=== PATIENT | female | born 1980 | race Caucasian/White ===

== ENCOUNTER 2019-08-14 14:07 | Emergency (ER) | payer MEDICARE, MEDICAID, SELFPAY ==
[2019-08-14 14:15] VITALS: BP 159/103; PULSE 120; RESP 17; TEMP 36.4; O2SAT 96; BMI 33.4
[2019-08-14 15:12] LABS: Basophils # 0.1 10^3/uL (0.0-0.1); Basophils % 0.7 %; Eosinophils # 0.2 10^3/uL (0.0-0.8); Eosinophils % 1.5 %; Hematocrit 41.2 % (37.0-47.0); Hemoglobin 13.1 g/dL (11.5-15.3); Lymphocytes # 3.6 10^3/uL (0.8-4.8); Lymphocytes % 29.1 %; Mean Corpuscular HGB Conc 31.8 g/dL (30.0-36.0); Mean Corpuscular Hemoglobin 27.9 pg (28.0-34.0); Mean Corpuscular Volume 87.7 fL (81-99); Mean Platelet Volume 9.6 fL (7.4-10.4); Monocytes # 0.8 10^3/uL (0.2-0.9); Neutrophils # 7.8 10^3/uL (1.8-7.7); Neutrophils % 62.5 %; Nucleated Red Blood Cells % 0 %; Platelet Count 474 10^3/cmm (130-400); Red Cell Distribution Width 15.7 % (12.1-15.1); White Blood Count 12.5 10^3/uL (4.0-10.0)
[2019-08-14 15:24] LABS: Add Urine Microscopic? NO
[2019-08-14 15:30] LABS: Alanine Aminotransferase 36 U/L (0-33); Albumin Level 4.5 g/dL (3.5-5.2); Alkaline Phosphatase 132 IU/L (35-105); Anion Gap 16.8 (5-19); Aspartate Amino Transferase 20 U/L (0-32); Blood Urea Nitrogen 13 mg/dL (6-20); Calcium 10.4 mg/Dl (8.6-10.0); Carbon Dioxide 22 mmol/L (22-29); Chloride 102 mmol/L (98-107); Globulin 3.8 g/dL (1.3-4.6); Glomerular Filtration Rate 92.7 mL/min (90-130); Glucose 152 mg/dL (74-109); Lipase 13 U/L (13-60); Potassium 3.8 mmol/L (3.5-5.1); Sodium 137 mmol/L (136-145); Total Bilirubin 0.2 mg/dL (0.15-1.2); Total Protein 8.3 g/dL (6.6-8.7)
[2019-08-14 15:31] LABS: Bilirubin Urine Neg (NEGATIVE); Blood Urine Neg (Negative); Glucose Urine UA Norm (Normal); Ketones Urine Negative (Negative); Leukocyte Esterase Urine Negative (Negative); Nitrate Urine Negative (Negative); Protein Urine Neg (Negative); Specific Gravity, Urine 1.005 (1.005-1.030); Urine Appearance Clear (CLEAR); Urine Color Straw (Yellow); Urobilinogen Urine Norm (Negative)
[2019-08-15 07:24] LABS: HCG, Serum Qual Negative (Negative)
== END 2019-08-14 16:39 | disposition left against medical advice (07) ==
LOC: ER 16:40
PROVIDERS: Emergency Provider Physician Assistant; Family Provider Family Medicine; PCP Family Medicine
DX: Z53.21 Procedure and treatment not carried out due to patient leaving prior to being seen by health care provider (principal)
CPT/HCPCS: 36415; 80053; 81003; 83690; 84703; 85025; 99281

== ENCOUNTER → 2019-11-15 16:44 | Outpatient (BNVA) | payer MEDICARE, MEDICAID, SELFPAY | PROVIDERS: Family Provider Family Medicine; PCP Family Medicine; Visit Provider Nurse Practitioner Family | DX: R05 Cough (principal); J01.40 Acute pansinusitis, unspecified; F17.210 Nicotine dependence, cigarettes, uncomplicated; Z71.89 Other specified counseling | CPT/HCPCS: 87400 ==

== ENCOUNTER → 2020-04-21 16:26 | Outpatient (BNVA) | payer MEDICARE, MEDICAID, SELFPAY | PROVIDERS: Family Provider Family Medicine; PCP Family Medicine; Visit Provider Family Medicine | DX: R05 Cough (principal) | CPT/HCPCS: 87635 ==

== ENCOUNTER 2020-05-18 06:57 | Outpatient (CLI) | payer MEDICARE, MEDICAID, SELFPAY ==
--- NOTE | 2020-05-18 | US_ITS ---
WS: [id number] RIGHT UPPER QUADRANT ULTRASOUND HISTORY: RUQ, TRANSAMINASES, SERUM ELEVATED COMPARISON: 01/27/2015 Liver: 17.1 cm in length. Mildly enlarged liver with mild hepatic steatosis. No mass or bile duct dil atation. Gallbladder: Prior cholecystectomy. CBD: 0.7 cm Pancreas: Normal size and echogenicity. Right kidney: 10.9 cm in length. Normal size and echogenicity. No hydronephrosis or mass. Aorta and IVC: Unremarkable abdominal aorta and IVC. No ascites. US/US gall bladder [id number] IMPRESSION: 1. Prior cholecystectomy. 2. Mild hepatic steatosis and hepatomegaly.
== END 2020-05-18 06:58 | disposition home or self-care (01) ==
LOC: US 07:00
PROVIDERS: Family Provider Family Medicine; PCP Family Medicine; Visit Provider Family Medicine
DX: R74.01 Elevation of levels of liver transaminase levels (principal); K76.0 Fatty (change of) liver, not elsewhere classified; R16.0 Hepatomegaly, not elsewhere classified
CPT/HCPCS: 76705

== ENCOUNTER 2020-06-03 10:37 | Outpatient (CLI) | payer MEDICARE, MEDICAID, SELFPAY ==
--- NOTE | 2020-06-03 10:46 | XR_ITS ---
WS: [id number] [facility], 06/03/2020 Clinical Data: ABD PAIN/DIARRHEA Comparison: KUB, 08/11/2013. Findings: No abnormal intraabdominal masses or calcifications are seen. There is no dilatated small bowel or ev idence of obstruction. There is a large amount of fecal material through out the colon. There are clips in the right upper q uadrant from a cholecystectomy. XR/XR abdomen 1V* [id number] Impression: Large amount of fecal material throughout the colon.
== END 2020-06-03 10:38 | disposition home or self-care (01) ==
PROVIDERS: PCP Family Medicine; Visit Provider Electrodiagnostic Medicine
DX: R10.9 Unspecified abdominal pain (principal); E07.9 Disorder of thyroid, unspecified; E11.9 Type 2 diabetes mellitus without complications; R19.7 Diarrhea, unspecified
CPT/HCPCS: 74018

== ENCOUNTER 2020-07-01 12:57 | Outpatient (CLI) | payer MEDICARE, MEDICAID, SELFPAY ==
--- NOTE | 2020-07-01 13:00 | CT_ITS ---
WS: [id number] CT ABDOMEN PELVIS TECHNIQUE: Contrast-enhanced CT of the abdomen and pelvis with coronal and sagittal reformatted image s. CLINICAL INFORMATION: ABDOMINAL PAIN, LEFT LOWER QUADRANT COMPARISON: None. DLP: 1185.[address] scans at [facility] use at least one of these dose optimization techniques: automat ed exposure control; mA and/or kV adjustment per patient size (includes targeted exams where dose is matched to clinical indication); or iterative reconstruction. FINDINGS: Mild hepatomegaly. Mild diffuse fatty infiltration liver. Prior cholecystectomy. Liver measures 17 cm in craniocaudal dimension. Lung bases are well aerated. Mild fatty atrophy of the pancreas. Adrenal glands are normal. Normal sp donte. Normal GE junction. Normal caliber abdominal aorta. No periaortic lymphadenopathy. No hydroneph rosis in either kidney. Normal renal parenchymal enhancement. Normal sigmoid colon. No evidence of high-grade small or large bowel obstruction. Normal appendix In the right lower quadrant. Fat-containing umbilical hernia. No pelvic or inguinal lymphadenopathy. 1.7 x 2.8 cm left ovarian cyst. No free fluid in the pelvis. CT/CT abdomen pelvis w con* [id number] IMPRESSION: 1. Mild hepatomegaly with diffuse fatty infiltration. 2. Prior cholecystectomy. 3. No hydronephrosis in either kidney. 4. Incidental fat-containing umbilical hernia. 5. Left ovarian cyst measuring 1.7 x 2.68 cm. This can be followed up with ult rasound. 6. No other significant findings.
[2020-07-01] MEDS: iohexol 300 mg/mL 50 mL Btl PO (13:20)
[2020-07-01] MEDS: iohexol 300 mg/mL 100 mL Btl IV (14:32)
== END 2020-07-01 12:58 | disposition home or self-care (01) ==
LOC: RADWPI 13:02
PROVIDERS: PCP Family Medicine; Visit Provider Family Medicine
DX: R10.32 Left lower quadrant pain (principal); R16.0 Hepatomegaly, not elsewhere classified; K76.0 Fatty (change of) liver, not elsewhere classified; Z90.49 Acquired absence of other specified parts of digestive tract; K42.9 Umbilical hernia without obstruction or gangrene; N83.202 Unspecified ovarian cyst, left side
CPT/HCPCS: 74177; Q9967

== ENCOUNTER → 2020-08-03 16:20 | Outpatient (BNVA) | payer MEDICARE, MEDICAID, SELFPAY | PROVIDERS: PCP Family Medicine; Visit Provider Obstetrics & Gynecology | DX: E28.2 Polycystic ovarian syndrome (principal); E11.9 Type 2 diabetes mellitus without complications; L65.9 Nonscarring hair loss, unspecified; N64.4 Mastodynia | CPT/HCPCS: 82306; 84439; 84443 ==

== ENCOUNTER → 2020-08-13 10:56 | Outpatient (BNVA) | payer MEDICARE, MEDICAID, SELFPAY | PROVIDERS: PCP Family Medicine; Visit Provider Family Medicine | DX: Z20.822 Contact with and (suspected) exposure to COVID-19 (principal); Z11.52 Encounter for screening for COVID-19 | CPT/HCPCS: 87635 ==

== ENCOUNTER 2021-06-15 15:31 | Outpatient (CLI) | payer MEDICARE, MEDICAID, SELFPAY ==
--- NOTE | 2021-06-15 15:38 | XRR_ITS ---
PROCEDURE INFORMATION: Exam: XR Chest Exam date and time: 06/15/2021 3:38 PM Age: 40 years old Clinical indication: Patient HX: Low grade fever x 11 days. (98.5-11.9) PT states she just does not feel well. Tested neg. For covid TECHNIQUE: Imaging protocol: XR of the chest. Views: 2 views. COMPARISON: CR Chest 1 [place] [id number] 12/13/2015 7:02 PM FINDINGS: Lungs: Unremarkable. No consolidation. Pleural spaces: Unremarkable. No pleural effusion. No pneumothorax. Heart/Mediastinum: Unremarkable. No cardiomegaly. Bones/joints: Unremarkable. XR/XR chest 2V* [id number] IMPRESSION: No acute findings. Radiation Dose CTDIVOL = (mGy): DLP = (mGy-cm)
== END 2021-06-15 15:32 | disposition home or self-care (01) ==
LOC: RAD 15:36
PROVIDERS: PCP Family Medicine; Visit Provider Family Medicine
DX: R50.9 Fever, unspecified (principal)
CPT/HCPCS: 71046

== ENCOUNTER 2021-07-02 08:07 | Outpatient (CLI) | payer MEDICARE, MEDICAID, SELFPAY ==
--- NOTE | 2021-07-02 | CT_ITS ---
WS: [id number] Exam: CT neck w con* [id number] Date/Time of Exam: 07/02/2021 8:44 AM Reason For Exam: LEFT LYMPHADENOPATHY DLP: 1150.[address] scans at [facility] use at least one of these dose optimization techniques: automated e xposure control; mA and/or kV adjustment per patient size (includes targeted exams where dose is matc hed to clinical indication); or iterative reconstruction. No evidence of neck mass. There are small lymph nodes in the right and left neck. The largest nodes m easure in the range of 6 mm at greatest short axis dimension. These are probably reactive or inflamma tory nodes. The airway is patent. The submandibular glands and parotid glands are symmetrical side to side. No mass is seen in the region of the tongue base. Vascular structures are patent. Prominent th yroid lobes. No superior mediastinal lymphadenopathy. No axillary or subpectoral lymphadenopathy. The upper lung zones are clear. There is a retention cyst in the left sphenoid sinus. The mastoids and r emaining facial sinuses were clear. Limited images of the skull base were otherwise unremarkable. CT/CT neck w con* [id number] IMPRESSION: 1. No indication of neck mass. 2. There are small lymph nodes identified in the right and left neck. All measu re less than 1 cm greatest short axis dimension. These are likely reactive or i nflammatory nodes. 3. Retention cyst in the left sphenoid sinus.
[2021-07-02] MEDS: iohexol 300 mg/mL 100 mL Btl IV (11:09)
== END 2021-07-02 08:08 | disposition home or self-care (01) ==
PROVIDERS: PCP Family Medicine; Visit Provider Family Medicine
DX: R59.0 Localized enlarged lymph nodes (principal); J34.1 Cyst and mucocele of nose and nasal sinus
CPT/HCPCS: 70491; Q9967

== ENCOUNTER → 2021-09-21 14:39 | Outpatient (BNVA) | payer MEDICARE, MEDICAID, SELFPAY | PROVIDERS: PCP Family Medicine; Visit Provider Internal Medicine | DX: E11.9 Type 2 diabetes mellitus without complications (principal); R00.2 Palpitations; R07.9 Chest pain, unspecified; R06.02 Shortness of breath; I10 Essential (primary) hypertension | CPT/HCPCS: 99204 ==

== ENCOUNTER → 2021-11-03 15:36 | Outpatient (BNVA) | payer MEDICARE, MEDICAID, SELFPAY | PROVIDERS: PCP Family Medicine; Visit Provider Internal Medicine | DX: I10 Essential (primary) hypertension (principal); E11.9 Type 2 diabetes mellitus without complications; R00.2 Palpitations; R07.9 Chest pain, unspecified; F17.210 Nicotine dependence, cigarettes, uncomplicated; Z79.84 Long term (current) use of oral hypoglycemic drugs | CPT/HCPCS: 99214 ==

== ENCOUNTER 2021-11-29 06:56 | Outpatient (CLI) | payer MEDICARE, MEDICAID, SELFPAY ==
[2021-11-29 07:27] VITALS: BMI 36.5
--- NOTE | 2021-11-29 07:27 | NMCV_ITS ---
NM nikita perf SPECT r/s* [id number] Caren Saul Age: 41 Gender: F : 1980 Exam Date: 11/29/2021 07:27 Ordering Phys: Brent Rdz M.D ([email or web address]) Technologist: JET Alaniz Exam Location: [facility] Indications: CHEST PAIN, SHORTNESS OF BREATH STRESS TEST Please see separate stress test report in [facility] for full findings IMAGE PROTOCOL Rest/Stress 1 Lexiscan Day Radiopharmaceutical Dose (mCi) Administration Site Administered by Rest: Tc-99m 10.8 IV JET Rivera Sestamibi Stress:Tc-99m 32.7 IV JET Rivera Sestamibi Rest: 29-Nov-2021 60 Discovery 630 Stress: 29-Nov-2021 30 Discovery 630 0.4mg Lexiscan. Supine position only as patient was unable to lay prone. SPECT RESULTS Technical Quality: Excellent Raw Data Analysis: Normal Image Corrections: No attenuation or motion correction applied Summed Stress Score: 1 Summed Rest Score: 5 Summed Difference Score: 1 PERFUSION FINDINGS There is reduced radiotracer uptake in the apical inferior and apical anterior jernigan that improves on stress. This is consistent with attenuation artifact. No evidence of ischemia FUNCTIONAL RESULTS (calculated via Gated SPECT) Stress Image LV EF (%): 73 Stress EDV (mL):110 TID: 0.97 Stress ESV (mL):30 FUNCTIONAL FINDINGS: There is normal left ventricular systolic function. IMPRESSIONS 1. Normal myocardial perfusion imaging with no evidence of ischemia. Attenuation artifact in apical anterior and apical inferior wall 2. LV systolic function is normal Brent Rdz MD (Electronically Signed) Final Date: 30 Nov 2021 12:16 S
--- NOTE | 2021-11-29 07:27 | ECG_ITS ---
[facility] Test Date: 2021-11-29 Pat Name: Caren Saul Department: Room: Gender: Female Wood [employer] Teacher: Lali Bailey : 1980 Requested By: Brent Rdz Order Number: [id number] Dona MD: Brent Rdz M.D. Interpretive Statements NAME OF STUDY: LEXISCAN SESTAMIBI STRESS TEST INDICATION: [Chest Pain, ] Procedure: At the baseline, the blood pressure was 152/83mmHg with a heart rate of 84bpm. The electrocardiogram showed normal sinus rhythm, normal axis with normal ST and T's. The Lexiscan was infused over a period of 20 seconds. A total of 0.4 mg of Lexiscan was infused. The stress phase was continued for a total of 5 minutes. Heart rate was at the end of stress phase was 96 bpm and a blood pressure of 150/92mmHg. The EKG at the peak infusion revealed normal sinus rhythm with no significant ST-T wave changes. Sestamibi was injected 20 seconds after the Lexiscan infusion. Blood pressure at the end of recovery phase was 151/90 mmHg with a heart rate of 92 bpm. Conclusion: 1. Normal EKG response to Lexiscan infusion 2. No Lexiscan induced chest pain or cardiac arrhythmia. 3. Normal blood pressure and heart rate response. 4. Sestamibi/sestamibi perfusion scan pending; see separate report. Electronically Signed On 12-23-2021 15:16:41 CDT by Brent Rdz M.D. [email or web address]
[2021-11-29] MEDS: regadenoson 0.4 Mg/5 ml Syringe IVP (09:15)
[2021-11-29 09:20] VITALS: BP 151/90; PULSE 92
--- NOTE | 2021-11-29 12:00 | USCV_ITS ---
Kg Caren Age: 41 Gender: F : 1980 Exam Date: 11/29/2021 07:48 Ordering Phys: Brent Rdz M.D ([email or web address]) Technologist: Praveen Valle Exam Location: [facility] Indication: SOB, CHEST PAIN BP: 112 / 68 HR: 82 Rhythm: Sinus Technical Quality: Adequate MEASUREMENTS (Male / Female) Normal Values 2D ECHO LV Diastolic Diameter PLAX 3.2 cm 4.2 - 5.9 / 3.9 - 5.3 cm LV Systolic Diameter PLAX 2.1 cm IVS Diastolic Thickness 1.2 cm 0.6 - 1.0 / 0.6 - 0.9 cm IVS Systolic Thickness 1.4 cm LVPW Diastolic Thickness 1.6 cm 0.6 - 1.0 / 0.6 - 0.9 cm LVPW Systolic Thickness 2.2 cm LVOT Diameter 2.1 cm LV Ejection Fraction 2D Teich 65.0 % LV Ejection Fraction MOD 2C 64.0 % LV Ejection Fraction 2C AL 67.2 % LA Diameter 3.2 cm LA Width 3.1 cm LA Height 4.5 cm RA Width 3.9 cm RA Height 4.0 cm Aorta at Sinotubular Diameter 2.4 cm IVC Diameter 2.0 cm M-MODE Aortic Annulus Diameter 3.1 cm LA Ao Ratio MM 1.1 MV E Point Septal Separation 0.6 cm DOPPLER AV Peak Velocity 127.0 cm/s LVOT Peak Velocity 106.0 cm/s AV Area Cont Eq vti 2.7 cm squared AV Area Cont Eq pk 2.8 cm squared MV Peak Velocity 101.0 cm/s MV Area PHT 5.6 cm squared Mitral E to A Ratio 0.9 MV E' Velocity 44.5 cm/s Mitral E to MV E' Ratio 8.3 Mitral E to LV E' Lateral Ratio 9.9 Mitral E to LV E' Septal Ratio 7.3 Right Atrial Pressure 3.0 mmHg RV Acceleration Time 0.1 s RV Ejection Time 0.3 s RV AcT/ET 0.3 FINDINGS Left Ventricle Normal left ventricular size. LV systolic function is normal with EF of 55-60%. No regional wall motion abnormalities. Grade 1 diastolic dysfunction Right Ventricle The right ventricle is normal in size and function. Right Atrium The right atrium is normal in size. Left Atrium The left atrium is normal in size. Mitral Valve Structurally normal mitral valve without significant stenosis or prolapse. There is trace mitral regurgitation. Aortic Valve Structurally normal aortic valve without significant sclerosis or stenosis. There is no aortic regurgitation. Tricuspid Valve Structurally normal tricuspid valve without significant stenosis . Trace Tricuspid regurgitation. Insufficient TR jet to calculate RVSP Pulmonic Valve Structurally normal pulmonic valve without significant stenosis. There is no pulmonic regurgitation. Pericardium Normal pericardium without effusion. Aorta Normal ascending aorta dimension. CONCLUSIONS LV systolic function is normal with EF of 55-60% Grade 1 diastolic dysfunction Trace mitral regurgitation Trace tricuspid regurgitation Compared to prior echocardiogram from 2016, no change is seen Brent Rdz MD (Electronically Signed) Final Date: 05 Dec 2021 11:44 S
== END 2021-11-29 06:57 | disposition home or self-care (01) ==
PROVIDERS: PCP Family Medicine; Visit Provider Internal Medicine
DX: R06.02 Shortness of breath (principal); R07.9 Chest pain, unspecified
CPT/HCPCS: 78452; 93017; 93306; A9500; J2785

== ENCOUNTER 2021-12-08 13:09 | Outpatient (CLI) | payer MEDICARE, MEDICAID, SELFPAY ==
--- NOTE | 2021-12-08 13:28 | XR_ITS ---
WS: [id number] Chest 2 views, 12/08/2021 Clinical Data: COPD Comparison: PA and lateral chest, 06/15/2021. Findings: No nodules, masses or effusions are seen. The heart is normal. The pulmonary vascularity is not increased. No pneumonia or pneumothorax is seen. XR/XR chest 2V* [id number] Impression: Negative chest.
== END 2021-12-08 13:10 | disposition home or self-care (01) ==
LOC: RAD 13:16
PROVIDERS: PCP Family Medicine; Visit Provider Family Medicine
DX: J44.1 Chronic obstructive pulmonary disease with (acute) exacerbation (principal)
CPT/HCPCS: 71046

== ENCOUNTER 2021-12-30 14:34 | Outpatient (CLI) | payer MEDICARE, MEDICAID, SELFPAY ==
[2021-12-30 17:09] LABS: Adenovirus Not Detected (NOT DETECT); Chlamydia Pneumoniae Not Detected (NOT DETECT); Coronavirus 229E,HKU1,NL63,OC4 Not Detected (NOT DETECT); Human Metapneumovirus Not Detected (NOT DETECT); Human Rhinovirus/Enterovirus Not Detected (NOT DETECT); Influenza A Not Detected (NOT DETECT); Influenza A H1 Not Detected (NOT DETECT); Influenza A H1-2009 Not Detected (NOT DETECT); Influenza A H3 Not Detected (NOT DETECT); Influenza B Not Detected (NOT DETECT); Mycoplasma Pneumoniae Not Detected (NOT DETECT); Parainfluenza Virus Type 1 Not Detected (NOT DETECT); Parainfluenza Virus Type 2 Not Detected (NOT DETECT); Parainfluenza Virus Type 3 Not Detected (NOT DETECT); Parainfluenza Virus Type 4 Not Detected (NOT DETECT); Respiratory Syncytial Virus A Not Detected (NOT DETECT); Respiratory Syncytial Virus B Not Detected (NOT DETECT); SARS-COV-2 Not Detected (NOT DETECT)
== END 2021-12-30 14:35 | disposition home or self-care (01) ==
PROVIDERS: PCP Family Medicine; Visit Provider Family Medicine
DX: J44.1 Chronic obstructive pulmonary disease with (acute) exacerbation (principal)
CPT/HCPCS: 87635

== ENCOUNTER → 2022-04-18 15:43 | Outpatient (BNVA) | payer MEDICARE, MEDICAID, SELFPAY | PROVIDERS: PCP Family Medicine; Visit Provider Internal Medicine | DX: I10 Essential (primary) hypertension (principal); F17.200 Nicotine dependence, unspecified, uncomplicated; E11.9 Type 2 diabetes mellitus without complications; Z79.84 Long term (current) use of oral hypoglycemic drugs; R00.0 Tachycardia, unspecified; R00.2 Palpitations; R07.9 Chest pain, unspecified | CPT/HCPCS: 99214 ==

== ENCOUNTER 2022-12-23 20:21 | Emergency (ER) | payer MEDICARE, MEDICAID, SELFPAY ==
[2022-12-23 20:41] VITALS: PULSE 90; RESP 16; TEMP 36.8; O2SAT 97
[2022-12-23] MEDS: ondansetron 4 MG Tablet PO (22:17)
[2022-12-23 22:49] VITALS: PULSE 83; O2SAT 93
--- NOTE | 2022-12-24 05:07 | ED_ITS ---
HPI - URI/Sore Throat General: Chief Complaint: Upper Respiratory Infection Stated Complaint: N/V/D Time Seen by Provider: 12/23/22 21:19 Source: patient Mode of arrival: ambulatory Limitations: no limitations History of Present Illness: Patient presents emergency department today for evaluation treatment of approximately 24 hours of low-grade fever, cough, congestion, and general ill feeling. Patient states she has also felt quite nauseated and has had no appetite. She states when she has tried to eat anything today it is caused her to gag and retch. She reports she still has taste but that everything tastes funny. She does not want to be tested for COVID. Review of Systems General: Reports: 10 or more systems reviewed and unremarkable except in HPI and below PFSH ED PFSH: Medical History Diabetes mellitus History of polycystic ovarian disease HTN (hypertension), benign Intervertebral disc disease Surgical History History of cholecystectomy 2014 lap History of tonsillectomy 1988 History of tubal ligation 2000 Social History Smoking and tobacco status: current every day smoker Alcohol intake: never Substance/Drug Use: never Physical Exam Const: COMMON NORMALS: no acute distress, patient oriented x3 and alert HENMT: OTHER: TMs with fluid present bilaterally with slight bulging but no erythema. EACs clear. Pharynx is minimally erythematous without signs of exudate. Airway is patent. Mucous membranes are moist. Uvula is midline. Nasal passages are slightly erythematous and boggy. Eye: COMMON NORMALS: Equal, round and reactive pupils present, EOMs intact bilaterally and conjunctivae normal CONJUNCTIVA: Yes conjunctivae normal PUPIL: Yes Equal, round and reactive pupils present Neck/C-Spine: COMMON NORMALS: no JVD Lymph: LYMPHATIC: no lymphadenopathy noted Resp: COMMON NORMALS: normal respiratory effort, No retractions and No use of accessory muscles Cardio: COMMON NORMALS: no JVD and regular rate RATE: regular rate : COMMON NORMALS: Yes no CVA tenderness BLADDER/KIDNEY EXAM: Yes no CVA tenderness Back/Pelvis: COMMON NORMALS: no CVA tenderness, thoracic and lumbar spine normal to inspection and thoraco-lumbar ROM normal Extremity: COMMON NORMALS: normal to inspection, full ROM and no pedal edema Neuro: COMMON NORMALS: patient oriented x3 SENSORIUM/ORIENTATION: Yes alert Skin: COMMON NORMALS: no rashes or lesions noted and turgor normal GENERAL SKIN EXAM: no rashes or lesions noted and turgor normal Course Vital Signs: Vital signs: Vital Signs Temperature 98.2 F 12/23/22 20:41 Pulse Rate 83 12/23/22 22:49 Respiratory Rate 16 12/23/22 20:41 Pulse Oximetry 93 12/23/22 22:49 Oxygen Delivery Me thod Room Air 12/23/22 20:41 MDM - URI/Sore Throat Medical Decision Making Patient presents today with approximately 24 hours of upper respiratory symptoms. At this point it is a little difficult to determine exactly what the causes given the short amount of time she has been ill but, is still most likely viral at this point. Patient continues to complain of nausea and we treated with antinausea medicine here and a prescription sent to the pharmacy as it would be very important that the patient stay well-hydrated during this time. Also encouraged her to use other [id number] symptomatic treatments for the next several days. Went over return precautions for change or worsening in condition though I did warn her that she may still run low-grade fevers for couple of days and experience upper respiratory symptoms. However, if symptoms last more than 5 to 7 days or, she spikes a high fever, has difficulty breathing, has a productive cough with green-yellow sputum, vomiting without ability to tolerate fluids or develops rash she should be seen and reevaluated again. Differential Diagnosis Likely upper respiratory infection, otitis media, sinusitis, viral infection, bronchitis and influenza Discharge Plan Discharge Patient Disposition: Home Clinical Impression: URI (upper respiratory infection), Nausea Condition: Stable Prescriptions: New ondansetron 4 mg tablet,disintegrating 4 mg PO Q8H 5 Days Qty: 15 0RF No Action gabapentin 400 mg capsule 400 mg PO QID methocarbamol 750 mg tablet 750 mg PO QID albuterol 90 mcg/actuation aerosol inhalation promethazine 25 mg tablet 25 mg PO Q6H PRN oxycodone 30 mg tablet 15 mg PO Q6H PRN propranolol 20 mg tablet 20 mg PO TID PRN propranolol 40 mg tablet 40 mg PO DAILY fluticasone propionate 50 mcg/actuation spray,suspension 1 spray intranasal BID Qty: 16 0RF Rx Instructions: administer into each nostril benzonatate 100 mg capsule 100 mg PO TID PRN (Reason: cough) Qty: 30 1RF prednisone 20 mg tablet 40 mg PO DAILY Qty: 14 0RF nystatin 100,000 unit/mL suspension 500,000 unit PO Q6H Qty: 473 1RF Rx Instructions: Swish 5ml in mouth for 2 min then gargle and swallow. diltiazem HCl [Cardizem CD] 120 mg capsule,extended release 24hr 120 mg PO DAILY Qty: 90 3RF cefdinir 300 mg capsule 300 mg PO BID Qty: 20 0RF albuterol sulfate [Ventolin HFA] 90 mcg/actuation HFA aerosol inhaler 2 puff inhalation Q6H PRN (Reason: shortness of breath or wheezing) Qty: 6.7 11RF fluconazole [Diflucan] 100 mg tablet 100 mg PO ONCE Qty: 1 2RF metformin 500 mg tablet 500 mg PO BID Qty: 60 12RF levofloxacin 500 mg tablet 500 mg PO DAILY Qty: 10 0RF doxycycline hyclate 100 mg tablet 100 mg PO BID 10 Days Qty: 20 0RF levothyroxine 50 mcg tablet 50 mcg PO DAILY Qty: 30 6RF zolpidem [Ambien] 10 mg tablet 10 mg PO .qhs PRN (Reason: insomnia) Qty: 30 2RF pantoprazole 40 mg tablet,delayed release (DR/EC) See Rx Instructions .ROUTE .COMPLEX Qty: 30 8RF Dose Instruction: TAKE ONE TABLET BY MOUTH EVERY DAY FOR STOMACH Rx Instructions: TAKE ONE TABLET BY MOUTH EVERY DAY FOR STOMACH Discharge Orders: Discharge ED (Routine); Ordered 12/23/22 Ordered By: Karla Kimball Referrals: Freeman Canas MD [Primary Care Provider] - Discharge Diet: Usual diet Discharge Activity: Increase activity as tolerated Patient Instructions: Upper Respiratory Infection (ED) Activity Restrictions/Additional Instructions: We are providing you a prescription for antinausea medication as will be extremely important that you stay well-hydrated during any type of illness. Use [id number] cough and cold medicine for congestion as needed. It is possible a viral illness is to run manageable fevers for few days however, if you have an extremely high fever, have vomiting without ability to tolerate fluids, or have any difficulty breathing you should be seen and reevaluated. Coding Level of Care Code ED Sales Service Representative for Phong Gordon
== END 2022-12-23 22:50 | disposition home or self-care (01) ==
PROVIDERS: Emergency Provider Physician Assistant; PCP Family Medicine
DX: J06.9 Acute upper respiratory infection, unspecified (principal); R11.0 Nausea; E11.9 Type 2 diabetes mellitus without complications; I10 Essential (primary) hypertension; F17.210 Nicotine dependence, cigarettes, uncomplicated
CPT/HCPCS: 99283; Q0162

== ENCOUNTER → 2023-02-01 15:16 | Outpatient (BNVA) | payer MEDICARE, MEDICAID, SELFPAY | PROVIDERS: PCP Family Medicine; Visit Provider Clinical Nurse Specialist Adult Health | DX: J01.40 Acute pansinusitis, unspecified (principal) | CPT/HCPCS: 87426 ==

== ENCOUNTER → 2023-04-20 11:35 | Outpatient (BNVA) | payer MEDICARE, MEDICAID, SELFPAY | PROVIDERS: PCP Family Medicine; Visit Provider Family Medicine | DX: I10 Essential (primary) hypertension (principal); E11.9 Type 2 diabetes mellitus without complications; E03.9 Hypothyroidism, unspecified; Z12.31 Encounter for screening mammogram for malignant neoplasm of breast; F17.219 Nicotine dependence, cigarettes, with unspecified nicotine-induced disorders; Z79.899 Other long term (current) drug therapy | CPT/HCPCS: 80053; 80061; 82043; 83036; 84443; 85025 ==

== ENCOUNTER 2023-06-23 11:02 | Outpatient (CLI) | payer MEDICARE, MEDICAID, SELFPAY ==
--- NOTE | 2023-06-23 11:10 | MM_ITS ---
WS: [id number] Bilateral diagnostic 3D tomosynthesis digital mammogram, 06/23/2023 Clinical Data: DISCHARGE/PAIN Comparison: 09/16/2016, 09/24/2008. Findings: The breasts show minimal fibroglandular tissue. There are no spiculated masses nor clustered calcific ations. There are no secondary signs of carcinoma. The areola show no abnormalities. Impression: 1. Negative bilateral mammogram is unchanged. 2. Recommend localized breast ultrasound in the periareolar regions of both breasts. MM/[place] [id number] BIRADS: 0-Incomplete: Need additional imaging evaluation FOLLOW UP: See Report The CAD mold checker was used.
--- NOTE | 2023-06-23 12:02 | US_ITS ---
WS: [id number] Bilateral breast ultrasound, 06/23/2023 Clinical Data: JUNITO DISCHARGE/PAIN Comparison: Right breast ultrasound, 09/23/2016. Findings: Bilateral periareolar ultrasounds were obtained. The tissue adjacent to the areola show no abnormalit ies. There were no cysts or masses. Only normal breast tissue is seen. Impression: 1. Negative bilateral periareolar ultrasound of the breasts. 2. Recommend annual screening mammograms. US/US breast BI limited* [id number] BIRADS: 1-Negative FOLLOW UP: 1 Year Follow-up
== END 2023-06-23 11:03 | disposition home or self-care (01) ==
LOC: RAD 11:02
PROVIDERS: PCP Family Medicine; Visit Provider Family Medicine
DX: N64.4 Mastodynia (principal); N64.52 Nipple discharge
CPT/HCPCS: 76642; 77062; G0279

== ENCOUNTER 2023-07-10 17:52 | Emergency (ER) | payer MEDICARE, MEDICAID, SELFPAY ==
[2023-07-10 18:14] VITALS: BP 139/85; PULSE 83; RESP 16; TEMP 36.7; O2SAT 96; BMI 34.9
--- NOTE | 2023-07-11 01:50 | ED_ITS ---
HPI - Nausea/Vomiting/Diarrhea General: Chief complaint: Nausea/Vomiting/Diarrhea Stated complaint: abdomen pain, congestion Time Seen by Provider: 07/10/23 19:26 Source: patient Mode of arrival: ambulatory Limitations: no limitations History of Present Illness: Patient presents emergency department today for evaluation treatment of diarrhea, increased nasal congestion and sinus pressure and low-grade fever. Patient states that 2 weeks ago she tested positive for COVID. She states she has never fully recovered and over the last several days has had development of watery brown diarrhea multiple times throughout the day. She also states she has had acute worsening of her sinus congestion and pressure with profuse amounts of nasal mucus when blowing her nose. She complains of low-grade fever s. Patient reports a long history of sinus issues for which she has been followed by ENT in the past. Patient also has other family members here for similar symptoms. She is still tolerating p.o. intake. She has tried some [id number] antidiarrheal medication as well. Review of Systems General: Reports: 10 or more systems reviewed and unremarkable except in HPI and below PFSH ED PFSH: Medical History Intervertebral disc disease Cervical and lumbar HTN (hypertension), benign Diabetes mellitus History of polycystic ovarian disease Surgical History History of cholecystectomy 2014 lap History of tubal ligation 2000 History of tonsillectomy 1988 Social History Smoking and tobacco/nicotine status: current every day tobacco/nicotine user Alcohol intake: never Substance/Drug Use: never Physical Exam Const: COMMON NORMALS: no acute distress, patient oriented x3 and alert HENMT: OTHER: Patient is audibly congested. Nasal passages are erythematous and boggy bilaterally with profuse amounts of nasal mucus visible in bilateral nasal passages. Pharynx is mildly erythematous with postnasal drip visible on the posterior pharynx. TMs are translucent bilaterally without erythematous or bulging. EACs are clear. Eye: COMMON NORMALS: Equal, round and reactive pupils present, EOMs intact bilaterally and conjunctivae normal CONJUNCTIVA: Yes conjunctivae normal PUPIL: Yes Equal, round and reactive pupils present Neck/C-Spine: COMMON NORMALS: no JVD Lymph: LYMPHATIC: no lymphadenopathy noted Resp: COMMON NORMALS: normal respiratory effort, No retractions and No use of accessory muscles Cardio: COMMON NORMALS: no JVD and regular rate RATE: regular rate GI: OTHER: Abdomen is soft, nontender. : COMMON NORMALS: Yes no CVA tenderness BLADDER/KIDNEY EXAM: Yes no CVA tenderness Back/Pelvis: COMMON NORMALS: no CVA tenderness, thoracic and lumbar spine normal to inspection and thoraco-lumbar ROM normal Extremity: COMMON NORMALS: normal to inspection, full ROM and no pedal edema Neuro: COMMON NORMALS: patient oriented x3 SENSORIUM/ORIENTATION: Yes alert Skin: COMMON NORMALS: no rashes or lesions noted and turgor normal GENERAL SKIN EXAM: no rashes or lesions noted and turgor normal Course Vital Signs: Vital signs: Vital Signs Temperature 98.0 F 07/10/23 18:14 Pulse Rate 83 07/10/23 18:14 Respiratory Rate 16 07/10/23 18:14 Blood Pressure 139/85 07/10/23 18:14 Pulse Oximetry 96 07/10/23 18:14 Oxygen Delivery Me thod Room Air 07/10/23 18:14 MDM - Nausea/Vomiting/Diarrhea Medical Decision Making Patient's evaluation today is suspicious for developing secondary sinus infection due to recent COVID illness. Patient does have a history of sinus issues-often recurrent. Patient may also have a stomach bug as there are several others in the home now developing diarrhea. Patient has a long list of allergies but states in the past she has taken levofloxacin for sinus relief with good results. Patient is treated with Bentyl, levofloxacin, and recommendations for other [id number] options in addition to increasing her clear fluid intake for the next few days. She is to carefully monitor her symptoms for any potential worsening including return of high fever, bloody stoo ls, or vomiting without ability to take medications or fluids. Patient verbalizes understanding and agreement to treatment plan. Differential Diagnosis Likely gastroenteritis; Unlikely traveler's diarrhea, food poisoning, clostridium difficile infection, drug-induced nausea and vomiting or dehydration No radiology studies performed this visit Discharge Plan Discharge Patient Disposition: Home Clinical Impression: Sinusitis Diarrhea Qualifiers: Diarrhea type: unspecified type Qualified Code(s): R19.7 - Diarrhea, unspecified Condition: Stable Prescriptions: New levofloxacin 500 mg tablet 500 mg PO DAILY 7 Days Qty: 7 0RF dicyclomine 10 mg capsule 10 mg PO TID Qty: 14 0RF No Action methocarbamol 750 mg tablet 750 mg PO QID albuterol 90 mcg/actuation aerosol inhalation oxycodone 30 mg tablet 10 mg PO Q4H PRN fluticasone propionate 50 mcg/actuation spray,suspension 1 spray intranasal BID Qty: 16 0RF Rx Instructions: administer into each nostril albuterol sulfate [Ventolin HFA] 90 mcg/actuation HFA aerosol inhaler 2 puff inhalation Q6H PRN (Reason: shortness of breath or wheezing) Qty: 6.7 11RF levothyroxine 50 mcg tablet 50 mcg PO DAILY Qty: 30 6RF zolpidem [Ambien] 10 mg tablet 10 mg PO .qhs PRN (Reason: insomnia) Qty: 30 2RF pantoprazole 40 mg tablet,delayed release (DR/EC) See Rx Instructions .ROUTE .COMPLEX Qty: 30 8RF Dose Instruction: TAKE ONE TABLET BY MOUTH EVERY DAY FOR STOMACH Rx Instructions: TAKE ONE TABLET BY MOUTH EVERY DAY FOR STOMACH fluconazole [Diflucan] 100 mg tablet 100 mg PO ONCE Qty: 1 2RF doxycycline hyclate 100 mg tablet 100 mg PO BID 10 Days Qty: 20 0RF metformin 500 mg tablet 500 mg PO BID Qty: 60 5RF atorvastatin 20 mg tablet 20 mg PO DAILY Qty: 90 0RF diltiazem HCl [Cardizem CD] 120 mg capsule,extended release 24hr 120 mg PO DAILY Qty: 90 0RF Rx Instructions: MUST MAKE APPOINTMENT AND BE SEEN FOR FURTHER REFILLS Discharge Orders: Discharge ED (Routine); Ordered 07/10/23 Ordered By: Karla Kimball Referrals: Cheyanne Lara DO [Primary Care Provider] - Discharge Diet: Usual diet Discharge Activity: Increase activity as tolerated Activity Restrictions/Additional Instructions: On examination today I hear no signs of pneumonia and show no signs of an ear infection however, given your history of recurrent sinus infections and recent COVID, you most likely have developed a secondary sinus infection due to your recent COVID illness. It is also possible that you have developed a viral stomach bug. During this time it is very important that you stay well-hydrated. We are going to provide you medication to help with your antibiotics however, I have also given you medication that will help with abdominal cramps and diarrhea. Symptoms should improve over the next couple of days. If you acutely worsen you should be seen and reevaluated again. Coding Level of Care Code ED Bindery Operator for Phong Gordon
== END 2023-07-10 20:24 | disposition home or self-care (01) ==
PROVIDERS: Emergency Provider Physician Assistant; PCP Family Medicine
DX: R19.7 Diarrhea, unspecified (principal); J32.9 Chronic sinusitis, unspecified; Z79.84 Long term (current) use of oral hypoglycemic drugs; I10 Essential (primary) hypertension; E11.9 Type 2 diabetes mellitus without complications; Z72.0 Tobacco use
CPT/HCPCS: 99283

== ENCOUNTER → 2023-09-28 11:13 | Outpatient (BNVA) | payer MEDICARE, MEDICAID, SELFPAY | PROVIDERS: PCP Family Medicine; Visit Provider Family Medicine | DX: E11.9 Type 2 diabetes mellitus without complications (principal); E03.9 Hypothyroidism, unspecified | CPT/HCPCS: 80053; 83036; 84443 ==

== ENCOUNTER → 2023-12-26 10:29 | Outpatient (BNVA) | payer MEDICAID, SELFPAY | PROVIDERS: PCP Family Medicine; Visit Provider Internal Medicine Cardiovascular Disease | DX: I10 Essential (primary) hypertension (principal); R07.9 Chest pain, unspecified; R00.2 Palpitations; F17.219 Nicotine dependence, cigarettes, with unspecified nicotine-induced disorders; E11.9 Type 2 diabetes mellitus without complications; Z79.84 Long term (current) use of oral hypoglycemic drugs; E03.9 Hypothyroidism, unspecified; E28.2 Polycystic ovarian syndrome; R06.02 Shortness of breath | CPT/HCPCS: 99203 ==

== ENCOUNTER 2024-06-24 14:55 | Outpatient (CLI) | payer MEDICARE, MEDICAID, SELFPAY ==
--- NOTE | 2024-06-24 14:57 | MM_ITS ---
WS: [id number] BILATERAL 3D TOMOSYNTHESIS DIGITAL SCREENING MAMMOGRAPHY WITH CAD CLINICAL INFORMATION: SCREENING HISTORY: Screening mammogram. No current complaints. COMPARISON: 2022 TECHNIQUE: Bilateral CC and MLO views. FINDINGS: Scattered fibroglandular densities bilaterally. No suspicious focal mass, asymmetry, calcifications, or architectural distortion. No evidence of malignancy. MM/MM scr BI tomosynthesis [id number] IMPRESSION: DENSITY: There are scattered areas of fibroglandular density. BI-RADS: 1 - Negative. FOLLOW UP: 1 Year Follow-up Recommend return to annual screening mammography.
== END 2024-06-24 14:56 | disposition home or self-care (01) ==
PROVIDERS: PCP Family Medicine; Visit Provider Nurse Practitioner Family
DX: Z12.31 Encounter for screening mammogram for malignant neoplasm of breast (principal); R92.323 Mammographic fibroglandular density, bilateral breasts
CPT/HCPCS: 77063; 77067

== ENCOUNTER → 2025-07-01 13:14 | Outpatient (BNVA) | payer MEDICAID, SELFPAY | PROVIDERS: PCP Family Medicine | DX: J02.9 Acute pharyngitis, unspecified (principal) | CPT/HCPCS: 87071; 87880 ==